=== PATIENT | female | born 1945 | race Caucasian/White ===

== ENCOUNTER → 2017-03-08 | Outpatient (CLI) | payer MEDICARE ==
[~2017-03-08] MED LIST: AMITIZA24 MCG PO; ASPIR 8181 MG PO; ATORVASTATIN CA40 MG PO; CARBIDOPA-LEVO1 EAC1 PO; COLACE100 MG PO; COUMADIN5 MG PO; CYMBALTA60 MG PO; DEPAKOTE ER500 MG PO; DURAGESIC1 EAC3 TD; ENULOSE10 GM/15 M PO; FIBER COMPLETE PO; FLEXERIL-DPS10 MG PO; GLUCOPHAGE-DPS500 MG PO; GLUCOPHAGE1000 MG PO; HABITROL DPS14 MG TD; KLONOPIN DPS1 MG PO; KLONOPIN1 MG PO; LACTULOSE20 GM/30 M PO; LASIX40 M1 PO; LOVENOX120 MG/0.8 SQ; MAALOX ADVANCE355 ML PO; MAALOX DPS30 ML PO; MACROBID100 MG PO; MAGNESIUM400 MG PO; MAGOX 400400 MG PO; METFORMIN HCL1000 M1 PO; METOPROLOL PO; METOPROLOL TART25 MG PO; MILK OF MA2400 MG/10 PO; MILK OF MAGNESI10 ML PO; MIRALAX17 GM PO; NEURONTIN DPS300 MG PO; NEURONTIN DPS600 MG PO; NICODERM CQ1 EACH TD; NITROSTAT0.4 MG SL; NYSTATIN CREAM15 GM TP; OXY IR DPS10 MG PO; OXY-CONTIN10 MG PO; PLAVIX75 MG PO; POTASSIUM CHLO10 ME2 PO; PROTONIX40 MG PO; SENOKOT-S TABL1 EACH PO; SENOKOT8.6 MG PO; SINEMET 25-1001 EACH PO; SYNTHROID112 MCG PO; SYNTHROID150 MCG PO; TYLENOL DPS325 MG PO; VALPROIC ACID PO; VITAMIN B-121000 MC1 PO; VITAMIN D35000 UNI1 PO; VITAMIN D50000 UNIT PO; XANAX DPS0.25 MG PO
== END | disposition home or self-care (01) ==
LOC: RAD.S 15:51
DX: C57.8 Malignant neoplasm of overlapping sites of female genital organs (principal); C56.9 Malignant neoplasm of unspecified ovary; I10 Essential (primary) hypertension; K86.9 Disease of pancreas, unspecified

== ENCOUNTER 2017-06-10 06:32 | Day surgery (SDC) | payer MEDICARE ==
[~2017-06-10] VITALS: Ht 167.6 cm; Wt 87.0 kg
[~2017-06-10 06:32] MED LIST changes: -CARBIDOPA-LEVO1 EAC1 PO; -COUMADIN5 MG PO; -DURAGESIC1 EAC3 TD; -ENULOSE10 GM/15 M PO; -GLUCOPHAGE1000 MG PO; -KLONOPIN DPS1 MG PO; -LOVENOX120 MG/0.8 SQ; -MAALOX ADVANCE355 ML PO; -MACROBID100 MG PO; -MAGNESIUM400 MG PO; -MILK OF MAGNESI10 ML PO; -NEURONTIN DPS300 MG PO; -NICODERM CQ1 EACH TD; -OXY IR DPS10 MG PO; -SENOKOT-S TABL1 EACH PO
== END 2017-06-10 10:15 | disposition home or self-care (01) ==
LOC: RAD.S 06:32 → EDSTATUS 08:00 → RAD.S 08:00
PROC: 0WBH3ZX Excision of Retroperitoneum, Percutaneous Approach, Diagnostic (ICD-10-PCS; principal; 2017-06-10)
DX: C78.6 Secondary malignant neoplasm of retroperitoneum and peritoneum (principal); Z85.43 Personal history of malignant neoplasm of ovary; Z79.891 Long term (current) use of opiate analgesic; Z79.899 Other long term (current) drug therapy; Z79.02 Long term (current) use of antithrombotics/antiplatelets; Z88.0 Allergy status to penicillin; Z88.3 Allergy status to other anti-infective agents; Z88.8 Allergy status to other drugs, medicaments and biological substances; Z79.82 Long term (current) use of aspirin